=== PATIENT | male | born 1985 | race Caucasian/White ===

== ENCOUNTER 2021-12-11 13:22 | Emergency (ER) | payer SELFPAY ==
[~2021-12-11] VITALS: Ht 167.6 cm; Wt 108.9 kg
--- NOTE | 2021-12-11 15:14 | NUR ---
PT IS IN ROOM #2B. DR GREEN EVALUATED THE PT.
[2021-12-11] MEDS ORDERED: NAPR-1009 PO (16:14)
--- NOTE | 2021-12-11 16:18 | NUR ---
DCD instructions & prescription given to pt. who verbalized understanding. pt. left room [id number]. ambulatory steady gait.
== END 2021-12-11 16:22 | disposition home or self-care (01) ==
LOC: ER 13:22
DX: M25.512 Pain in left shoulder (principal)
CPT/HCPCS: 71045; 72125; 73030; A4663